=== PATIENT | female | born 1990 | race Caucasian/White ===

== ENCOUNTER 2024-05-18 14:14 | Outpatient (AMB) | payer BC, SELFPAY ==
--- NOTE | 2024-05-18 14:40 | MHC.PC.OV ---
Vital Signs 05/18/24 14:43 Height 5 ft 5.91 in Weight 289 lb BMI 46.8 BP 102/84 Blood Pressure Location Lt brachial Position Sitting Respiration 16 Pulse 92 Pulse Source Pulse Oximeter Temp 98.7 F Temp Source Oral Pulse Oximetry (%) 97 Oxygen Delivery Method Room Air Intake Visit Reasons: Est Care Intake Note: New patient visit Allergies dupilumab [From Dupixent Pen] Allergy (Mild, Verified 05/18/24 14:41) Hives Tobacco use date assessed: 05/18/24 Dental Screening Dental Screen Date: 05/18/24 Did you have a dental visit in the last 12 months?: Yes Did you have a dental problem in the last 6 months where you did not have access to dental care?: No Was dental information given to patient?: Patient has dentist HPI Est Care HPI Details Pt is a 34 y/o female who presents today for a cpe. She has a hx of psoraisis being managed by [facility] and allergies. No acute concerns today Allergy and immunology gets allergy injections. Recently started on Tremfya for psoriasis. She seems to be tolerating this well. On vitamin D daily. 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 1. Little interest or pleasure in doing things: not at all 2. Feeling down, depressed, or hopeless: not at all 3. Trouble falling or staying asleep, or sleeping too much: not at all 4. Feeling tired or having little energy: several days 5. Poor appetite or overeating: not at all 6. Feeling bad about yourself - or that you are a failure or have let yourself or your family down: not at all 7. Trouble concentrating on things, such as reading the newspaper or watching television: not at all 8. Moving or speaking so slowly that other people could have noticed. Or the opposite - being so fidgety or restless that you have been moving around a lot more than usual: not at all 9. Thoughts that you would be better off or of hurting yourself in some way: not at all Total score: 1 Depression Screening Interpretation: Negative Depression Screening Done: Yes [id number] - PHQ-9 Billing: Yes Source: Developed by Drs. Vern Mckeon, Renata Cooper, Ham Argueta and colleagues, with an educational abraham from [employer]. Thrive Questionnaire Date Thrive assessed: 04/21/24 I am a: Patient What is your living situation today?: I have a steady place to live Within the past 12 months, did the food you bought not last and you didn't have the money to get more?: Never true Within the past 12 months, did you worry whether your food would run out before you got money to buy more?: Never true Do you have trouble paying for medicines?: No Do you have trouble getting transportation to medical appointments?: No Do you have trouble paying your heating and electricity bill?: No Do you have trouble taking care of your child, family member or friend?: No Do you have trouble with day-to-day activities such as bathing, preparing meals, shopping, managing finances, etc.?: No Are you currently unemployed and looking for a job?: No Are you interested in more education?: No Please select the resources that you would like help with: None Currently or been in a relationship where the following occur: No concerns reported THRIVE Score: 0 AUDIT C Alcohol Use Questionnaire (AUDIT-C) 1. How often do you have a drink containing alcohol?: Never (past) 3. How often do you have six or more drinks on one occasion?: Never Total Score: 0 Score Reviewed/Action Taken: Yes NICHELLE-7 AMB Questionnaire NICHELLE-7 Feeling nervous, anxious, or on edge: 0 = Not at all Not being able to stop or control worryin = Not at all Worrying too much about different things: 0 = Not at all Trouble relaxin = Not at all Being so restless that it is hard to sit still: 0 = Not at all Becoming easily annoyed or irritable: 0 = Not at all Feeling afraid as if something awful might happen: 0 = Not at all Total NICHELLE-7 score (0-4 normal; 5-9 mild; 10-14 moderate; 15-21 severe): 0 Source: Developed by Drs. Vern Mckeon, Renata Cooper, Ham Argueta and colleagues, with an educational abraham from [employer]. NICHELLE-7 Assessment Billing NICHELLE-7 Assessment Tool: NICHELLE-7 Assessment 14381 Physical exam (Primary Care) Vital Signs: Last Vital Signs Temp 98.7 F 05/18/24 14:43 Pulse 92 05/18/24 14:43 Resp 16 05/18/24 14:43 BP 102/84 05/18/24 14:43 Pulse Ox 97 05/18/24 14:43 Oxygen Delivery Method Room Air 05/18/24 14:43 BMI result Body Mass Index 46.8 Tobacco/Smoking Status: Tobacco use Status Tobacco use date assessed 05/18/24 05/18/24 14:48 Patient Tobacco Use Status Never used Tobacco 05/18/24 14:48 e-Cigarette/Vaping Use Never Used 05/18/24 14:48 PHQ-9: PHQ-9 Score PHQ-9: Total score 1 05/18/24 14:48 Depression Screening Interpretation: Negative Thrive Assessment: Date of Thrive Assessment Date Thrive assessed 04/21/24 05/18/24 14:48 Currently or been in a relationship where the following occur: No concerns reported Const Orientation/consciousness: patient oriented x3 HENMT Ears: hearing grossly normal bilaterally and TM's normal bilaterally General nose exam: No nasal polyps present Face and sinus: Yes sinuses nontender Mouth: Normal oral and palatal mucosa present Eyes Pupils: Equal, round and reactive pupils present EOM: EOMs intact bilaterally Neck Neck: Yes full ROM and Yes no lymphadenopathy Thyroid: Thyroid normal Chest Chest palpation & inspection: normal inspection of the chest Resp Auscultation: clear to auscultation bilaterally Cardio Rate: regular rate Rhythm: regular rhythm Heart sounds: S1 normal heart sound present and S2 normal heart sound present Peripheral pulses: Peripheral pulses 2+ throughout GI Other: Soft, nontender Auscultation: normal bowel sounds Rectal Exam - Female: deferred General: Yes no CVA tenderness Back/Spine/Pelvis Other: Nontender Back: no CVA tenderness Skin General skin exam: no rashes or lesions noted Neuro General: patient oriented x3, gait normal, CN's II-XI intact bilaterally and deep tendon reflexes 2+ bilaterally Cranial nerves: Yes Equal, round and reactive pupils present Motor exam (neuro): 5/5 motor strength present throughout Sensory Exam: double simultaneous stimulation for sensation normal Coordination: [id number]-ci-[id number] test normal and Romberg test negative Extrem General: Yes normal to inspection and Yes full ROM Psych Affect: normal affect Attitude: cooperative Thought process: Normal thought process present Thought content: Normal thought content present Insight: Good insight present (Psych) Judgement: Good judgement present (Psych) Coding Level of Care Code Est Pt Prev Care 18-39y(90025) Diagnoses Routine general medical examination at a health care facility Z00.00 Psoriasis L40.9 Additional Codes PHQ-9 - 13953 - PHQ-9 Billing: Yes ([id number]) NICHELLE-7 Assessment Billing - NICHELLE-7 Assessment Tool: NICHELLE-7 Assessment 39945 ([id number]) Assessment & Plan Assessment & Plan (1) Routine general medical examination at a health care facility: Code(s): Z00.00 - Encounter for general adult medical examination without abnormal findings Plan: Health maintenance reviewed. Labs ordered today. We will follow up pending test results. (2) Psoriasis: Code(s): L40.9 - Psoriasis, unspecified Category: Medical Plan: Tolerating Tremfya well. She will follow up [facility]. Labs ordered including T spot. Orders: Orders Lipid Panel Today Z - Encounter for other specified special examinations TSH reflex Free T4 Today Z - Encounter for other specified special examinations Vitamin B12 and Folate Today Z. - Encounter for other specified special examinations Complete Blood Count Auto Diff Today Z01. - Encounter for other specified special examinations Comprehensive [place]. Panel Fast Today Z01. - Encounter for other specified special examinations T Spot TB Today Z. - Encounter for other specified special examinations, Z11.1 - Encounter for screening for respiratory tuberculosis
[2024-05-18 14:43] VITALS: BP 102/84; PULSE 92; RESP 16; TEMP 37.1; O2SAT 97; BMI 46.8
== END 2024-05-18 15:13 | disposition home or self-care (01) ==
LOC: HO.HMCFM 14:15
PROVIDERS: PCP Physician Assistant; Visit Provider Physician Assistant
DX: Z00.00 Encounter for general adult medical examination without abnormal findings (principal); L40.9 Psoriasis, unspecified

== ENCOUNTER → 2024-05-18 14:14 | Outpatient (BNVA) | payer BC, SELFPAY | PROVIDERS: Visit Provider Physician Assistant | DX: Z00.00 Encounter for general adult medical examination without abnormal findings (principal); L40.9 Psoriasis, unspecified | CPT/HCPCS: 96127 ==

== ENCOUNTER 2024-05-23 07:46 | Outpatient (REF) | payer BC, SELFPAY ==
[2024-05-23 11:06] LABS: MANUAL DIFF FLAG NO
[2024-05-23 11:15] LABS: Basophils Percent Auto 0.3 % (0-2); Eosinophils Absolute Auto 0.2 X10*3/uL (0.0-0.4); Eosinophils Percent Auto 2.8 % (0-4); Hematocrit 41.2 % (37.0-47.0); Hemoglobin 13.3 g/dl (12.0-16.0); Imm Gran Abs Auto 0.01 X10*3/uL (0.00-0.03); Imm Gran Pct Auto 0.1 % (0.0-0.4); Lymphocytes Absolute Auto 2.2 X10*3/uL (1.2-4.9); Lymphocytes Percent Auto 32.3 % (20-40); Mean Corpuscular HGB Conc 32.3 g/dl (31.0-35.0); Mean Corpuscular Hemoglobin 27.7 pg (27.0-33.0); Mean Corpuscular Volume 85.7 fL (80.0-98.0); Monocytes Absolute Auto 0.3 X10*3/uL (0.1-1.2); Neutrophils Percent Auto 59.5 % (45-73); Platelet Count 278 X10*3/uL (160-400); Red Blood Count 4.81 X10*6/uL (4.20-5.50); Red Cell Distribution Width 13.7 % (11.0-16.0); White Blood Count 6.8 X10*3/uL (4.8-10.8)
[2024-05-23 12:03] LABS: Folate 4.1 ng/mL (> or = 4.0); Vitamin B12 306 pg/mL (200-900)
[2024-05-23 12:04] LABS: Alanine Aminotransferase 14 U/L (0-31); Albumin Level 3.6 g/dL (3.5-5.0); Alkaline Phosphatase 55 U/L (39-117); Anion Gap 12 (12-20); Aspartate Amino Transferase 21 U/L (5-31); Bilirubin Total 0.3 mg/dL (0.0-1.0); Blood Urea Nitrogen 11 mg/dL (9-16); Calcium 8.9 mg/dL (8.4-10.2); Carbon Dioxide 23 mmol/L (22-29); Chloride 108 mmol/L (96-108); Cholesterol 187 mg/dL (<200); Estimated Glomerular Filt Rate > 60; Glucose Fasting 81 mg/dL (60-99); HDL Cholesterol 57 mg/dL (>40); LDL Cholesterol Calculated 100 mg/dL (<100); Potassium 3.9 mmol/L (3.3-5.1); Sodium 139 mmol/L (135-145); TSH reflex Free T4 2.05 uIU/mL (0.32-4.0); Total Protein 7.5 g/dL (6.5-8.0); Triglycerides 153 mg/dL (<150)
[2024-05-26 05:09] LABS: TS Negative Control Passed; TS Panel A 1; TS Panel B 0; TS Positive Control Passed; TSpotTB Negative (Negative)
== END 2024-05-23 07:47 | disposition home or self-care (01) ==
LOC: HO.WFDLDS 07:46
PROVIDERS: Visit Provider Physician Assistant
DX: Z01.89 Encounter for other specified special examinations (principal); Z11.1 Encounter for screening for respiratory tuberculosis
CPT/HCPCS: 36415; 80053; 80061; 82607; 82746; 84443; 85025; 86481

== ENCOUNTER 2024-07-14 09:59 | Outpatient (AMB) | payer BC, SELFPAY ==
--- NOTE | 2024-07-14 10:05 | MHC.PC.OV ---
Vital Signs 07/14/24 10:09 Height 5 ft 5.91 in Weight 281 lb 4 oz BMI 45.5 BP 110/76 Blood Pressure Location Rt brachial Position Sitting Pulse 94 Pulse Source Pulse Oximeter Temp 98.6 F Temp Source Oral Pulse Oximetry (%) 99 Oxygen Delivery Method Room Air Intake Visit Reasons: Couch and congestion Intake Note: Cough, congestion, headache, hot and cold, chills. Sxs for a week and a half. Allergies dupilumab [From HuntForce Pen] Allergy (Mild, Verified 05/18/24 14:41) Hives Medication List - Last Reconciled 07/14/24 by Lilibeth Cabrera PA-C cetirizine (Zyrtec) 10 mg PO DAILY PRN guselkumab (Tremfya) 100 mg subcut Q8W norgestimate-ethinyl estradiol 0.25-35 mg-mcg (Estarylla) 1 tab PO DAILY Tobacco use date assessed: 05/18/24 Dental Screening Dental Screen Date: 05/18/24 HPI Couch and congestion HPI Details History of Present Illness The patient is a 34-year-old female presenting with symptoms indicative of acute sinusitis and an upper respiratory tract infection. The onset of symptoms was approximately one and a half weeks ago, characterized initially by nasal congestion followed by a sensation of postnasal drip leading to throat irritation. The patient reports a progression of the discomfort, with the sensation of congestion extending to the chest. Associated symptoms include persistent coughing, often induced by speaking or physical exertion, such as ascending stairs, which results in significant fatigue. The patient denies having a history of asthma but does indicate experiencing wheezing during these episodes. There has been no recorded fever, though the patient reports episodes of feeling hot and experiencing chills. The patient has been treating her symptoms with Tylenol, decongestants, allergy medications, and cough suppressants without significant relief. She mentions a history of pneumonia but reports no recent hospitalizations for respiratory symptoms. Health Maintenance Social History Review of Systems - Constitutional: Denies fever. - Respiratory: Reports wheezing associated with exertion and cough. - ENT: Reports congestion, postnasal drip, and sore throat. Pain in the maxillary sinus region. Physical Exam General: Well developed, well nourished, in no acute distress. Appears stated age. HEENT: TMs dome-shaped a small air-fluid levels bilaterally, mild posterior oropharynx erythema. Maxillary sinus tenderness present. Nasal mucosa erythematous and edematous with purulent drainage. Cardiac: RRR, no murmurs Lungs: Inspiratory expiratory wheezing noted. 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 1. Little interest or pleasure in doing things: several days 2. Feeling down, depressed, or hopeless: not at all 3. Trouble falling or staying asleep, or sleeping too much: several days 4. Feeling tired or having little energy: several days 5. Poor appetite or overeating: several days 6. Feeling bad about yourself - or that you are a failure or have let yourself or your family down: not at all 7. Trouble concentrating on things, such as reading the newspaper or watching television: not at all 8. Moving or speaking so slowly that other people could have noticed. Or the opposite - being so fidgety or restless that you have been moving around a lot more than usual: not at all 9. Thoughts that you would be better off or of hurting yourself in some way: not at all Total score: 4 Source: Developed by Drs. Vern Mckeon, Renata Cooper, Ham Argueta and colleagues, with an educational abraham from [employer]. Thrive Questionnaire Date Thrive assessed: 07/14/24 I am a: Patient What is your living situation today?: I have a steady place to live Within the past 12 months, did the food you bought not last and you didn't have the money to get more?: Never true Within the past 12 months, did you worry whether your food would run out before you got money to buy more?: Never true Do you have trouble paying for medicines?: No Do you have trouble getting transportation to medical appointments?: No Do you have trouble paying your heating and electricity bill?: No Do you have trouble taking care of your child, family member or friend?: No Do you have trouble with day-to-day activities such as bathing, preparing meals, shopping, managing finances, etc.?: No Are you currently unemployed and looking for a job?: No Are you interested in more education?: No Please select the resources that you would like help with: None Currently or been in a relationship where the following occur: No concerns reported THRIVE Score: 0 AUDIT C Alcohol Use Questionnaire (AUDIT-C) 1. How often do you have a drink containing alcohol?: Never Total Score: 0 NICHELLE-7 AMB Questionnaire NICHELLE-7 Feeling nervous, anxious, or on edge: 0 = Not at all Not being able to stop or control worryin = Not at all Worrying too much about different things: 0 = Not at all Trouble relaxin = Not at all Being so restless that it is hard to sit still: 0 = Not at all Becoming easily annoyed or irritable: 0 = Not at all Feeling afraid as if something awful might happen: 0 = Not at all Total NICHELLE-7 score (0-4 normal; 5-9 mild; 10-14 moderate; 15-21 severe): 0 Source: Developed by Drs. Vern Mckeon, Renata Cooper, Ham Argueta and colleagues, with an educational abraham from [employer]. Physical exam (Primary Care) Vital Signs: Last Vital Signs Temp 98.6 F 07/14/24 10:09 Pulse 94 07/14/24 10:09 BP 110/76 07/14/24 10:09 Pulse Ox 99 07/14/24 10:09 Oxygen Delivery Method Room Air 07/14/24 10:09 BMI result Body Mass Index 45.5 Tobacco/Smoking Status: Tobacco use Status Tobacco use date assessed 05/18/24 07/14/24 10:11 Patient Tobacco Use Status Never used Tobacco 07/14/24 10:11 e-Cigarette/Vaping Use Never Used 07/14/24 10:11 PHQ-9: PHQ-9 Score PHQ-9: Total score 4 07/14/24 10:11 Thrive Assessment: Date of Thrive Assessment Date Thrive assessed 07/14/24 07/14/24 10:11 Currently or been in a relationship where the following occur: No concerns reported Coding Level of Care Code Est Pt Level 3 (50969) Complex EM visit Add On G2211 Diagnoses Bacterial sinusitis J32.9; B96.89 Wheezing R06.2 Assessment & Plan Assessment & Plan (1) Bacterial sinusitis: Code(s): J32.9 - Chronic sinusitis, unspecified; B96.89 - Other specified bacterial agents as the cause of diseases classified elsewhere Plan: We will start Augmentin. Discussed risks and benefits and adverse effects of this medication. Start prednisone taper for the wheezing. Albuterol to use as needed. Follow up if no improvement or if anything worsens or changes. (2) Wheezing: Code(s): R06.2 - Wheezing Plan: As above Medications: New prednisone take 3 tab po x 3 days, take 2 tab po x 3 days, 1 tab po x 3 days 18 tabs 0RF albuterol sulfate 90 mcg/actuation 2 puffs inhalation Q4-6H PRN 8.5 grams 0RF shortness of breath or wheezing amoxicillin-pot clavulanate 875-125 mg 1 tab PO Q12H 20 tabs 0RF
[2024-07-14 10:09] VITALS: BP 110/76; PULSE 94; TEMP 37; O2SAT 99; BMI 45.5
== END 2024-07-14 14:08 | disposition home or self-care (01) ==
PROVIDERS: PCP Physician Assistant; Visit Provider Physician Assistant
DX: J32.9 Chronic sinusitis, unspecified (principal); B96.89 Other specified bacterial agents as the cause of diseases classified elsewhere; R06.2 Wheezing

== ENCOUNTER → 2024-07-14 09:59 | Outpatient (BNVA) | payer BC, SELFPAY | PROVIDERS: PCP Physician Assistant; Visit Provider Physician Assistant ==

== ENCOUNTER 2024-07-22 13:20 | Outpatient (REF) | payer BC, SELFPAY ==
[2024-07-22 18:33] LABS: Influenza A PCR NEGATIVE (Negative); Influenza B PCR NEGATIVE (Negative); Resp Syncy Virus RNA Qual PCR NEGATIVE (Negative); SARS COV2 PCR INHOUSE POSITIVE (Negative)
== END 2024-07-22 13:21 | disposition home or self-care (01) ==
LOC: HO.LNP 13:20
PROVIDERS: PCP Nurse Practitioner Family; Visit Provider Nurse Practitioner Family
DX: R05.1 Acute cough (principal); J01.01 Acute recurrent maxillary sinusitis
CPT/HCPCS: 0241U; 94640

== ENCOUNTER 2024-07-22 13:20 | Outpatient (AMB) | payer BC, SELFPAY ==
--- NOTE | 2024-07-22 13:26 | A.OFFPC_ITS ---
Vital Signs 07/22/24 13:39 07/22/24 13:53 Height 5 ft 5.91 in Weight 281 lb BMI 45.5 BP 148/78 H Blood Pressure Location Lt brachial Position Sitting Respiration 13 14 Pulse 111 H 99 Pulse Source Pulse Oximeter Pulse Oximeter Temp 98.1 F Temp Source Oral Pulse Oximetry (%) 98 99 Oxygen Delivery Method Room Air Room Air Intake Visit Reasons: Sinus Infection, not improved w/antibiotic, KH pt Allergies dupilumab [From Samtec Pen] Allergy (Mild, Verified 07/22/24 13:26) Hives Medication List - Last Reconciled 07/22/24 by Chantelle Morales, CARDIAC CARE UNIT NURSE- albuterol sulfate 90 mcg/actuation 2 puffs inhalation Q4-6H PRN amoxicillin-pot clavulanate 875-125 mg 1 tab PO Q12H cetirizine (Zyrtec) 10 mg PO DAILY PRN guselkumab (Tremfya) 100 mg subcut Q8W norgestimate-ethinyl estradiol 0.25-35 mg-mcg (Estarylla) 1 tab PO DAILY Tobacco use date assessed: 05/18/24 Dental Screening Dental Screen Date: 05/18/24 HPI HPI Comments History of Present Illness Details History of Present Illness The patient is a 34-year-old female presenting with continued sinus infection and associated respiratory symptoms. The patient reports a longstanding history of chronic sinusitis, which she has experienced recurrently since childhood. Current symptoms began on end jun and were initially managed with a regimen i ncluding prednisone, amoxicillin, and use of an inhaler. Despite completing prednisone and continuing amoxicillin, the patient reports persistent sinus pain, particularly localized to the right side of the face and head. A notable symptom accompanying these infections is difficulty breathing during conversation due to a cough that is exacerbated by speaking and accompanied by gasping for air. The patient denies smoking and confirms recent COVID testing was negative. Additionally, she noted use of Nasacort nasal spray and received both her flu and tetanus vaccinations. Previously, the patient was advised to postpone a Tremfya shot for her psoriasis due to symptoms. Current respiratory symptoms include a persistent cough characterized by drip sensation and tightness, unrelieved by current treatments. A nebulizer treatment as a child was tolerated well. No fever-reducing medications were taken today, with her current temperature at 98?F, and O2 saturation noted at 98%. Exam Awake alert NAD Sclera and conjunctiva clear bilat Nares patent, turbinates pale and edematous, right maxillary sinus tender to palpation TM intact and clear on left, mild bulge on right with mild erythema MMM, pharynx WNL Mildly tachycardic, regular rhythm LS dim throughout, hacking cough noted without distress. Status post DuoNeb updraft, improved air flow throughout lung de leon with a decreased cough. P atient reports her breathing does feel better. Plan - Conduct a nebulizer treatment containi ng bronchodilator and anticholinergic agents to assess and relieve respiratory symptoms. - Perform comprehensive swab testing for influenza, COVID-19, and RSV, sending specimens to the lab for analysis. She is aware that the results will be posted to the portal. If it is positive for flu she should be prescribed Tamiflu. If his positive for RSV this is symptomatic relief only. If she is positive for COVID, Paxlovid could be considered. - Continue amoxicillin as prescribed for acute bacterial sinusitis. Add azithromycin to her regimen - given that she had profound improvemen t with the DuoNeb updraft, we will add Combivent 1 puff q.i.d. PRN. Advised to use until her breathing is better. Educated on reasons to return to the office Patient was informed and verbally consented to the use of an ambient scribe for clinic note documentation during this visit. This note is constructed using voice recognition software. While every effort has been made to ensure accuracy in surface lay out technician, still errors may have been included Sometimes, these errors may affect the content or meaning of the given sentence . Total time spent caring for the patient today was 45 minutes. 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 10213 - PHQ-9 Billing: Patient declined-do not bill Source: Developed by Drs. Vern Mckeon, Renata Cooper, Ham Argueta and colleagues, with an educational abraham from [employer]. Thrive Questionnaire Date Thrive assessed: 07/22/24 I am a: Patient What is your living situation today?: I have a steady place to live Within the past 12 months, did the food you bought not last and you didn't have the money to get more?: Never true Within the past 12 months, did you worry whether your food would run out before you got money to buy more?: Never true Do you have trouble paying for medicines?: No Do you have trouble getting transportation to medical appointments?: No Do you have trouble paying your heating and electricity bill?: No Do you have trouble taking care of your child, family member or friend?: No Do you have trouble with day-to-day activities such as bathing, preparing meals, shopping, managing finances, etc.?: No Are you currently unemployed and looking for a job?: No Are you interested in more education?: No Please select the resources that you would like help with: None Currently or been in a relationship where the following occur: No concerns reported THRIVE Score: 0 Physical exam (Primary Care) Vital Signs: Last Vital Signs Temp 98.1 F 07/22/24 13:39 Pulse 99 07/22/24 13:53 Resp 14 07/22/24 13:53 BP 148/78 H 07/22/24 13:53 Pulse Ox 99 07/22/24 13:53 Oxygen Delivery Method Room Air 07/22/24 13:53 BMI result Body Mass Index 45.5 Tobacco/Smoking Status: Tobacco use Status Tobacco use date assessed 05/18/24 07/22/24 13:26 Patient Tobacco Use Status Never used Tobacco 07/22/24 13:26 e-Cigarette/Vaping Use Never Used 07/22/24 13:26 Thrive Assessment: Date of Thrive Assessment Date Thrive assessed 07/22/24 07/22/24 13:40 Currently or been in a relationship where the following occur: No concerns reported Office Procedures Nebulizer Treatment Nebulizer Treatment 37874-Jwgycbjif/MDI RX initial, or Nebulizer Subsequent Treatment Nebulizer Treatment Nebulizer Treatment 09440-Shtvjgsgy/MDI RX initial, or Nebulizer Subsequent Treatment Office Meds ipratropium 0.5 mg-albuterol 3 mg (2.5 mg base)/3 mL nebulization soln Performing Provider: DORIS Rice Performing Location: [facility] Administered by: DORIS Rice on 07/22/24 13:35 Dose Route Admin Location Dispensed Lot Number Expiration Date NDC Cutter Machine 3 mL inhalation office 3 mL 24ehs 12/10/25 [id number] [employer] Coding Level of Care Code Est Pt Level 5 (77319) Complex EM visit Add On G2211 Diagnoses Acute cough R05.1 Cough type: acute Acute recurrent maxillary sinusitis J01.01 Sinusitis location: maxillary Chronicity: acute Recurrence: recurrent CPT Codes Nebulizer Treatment - Nebulizer Treatment, initial or subsequent: 41916- Nebulizer/MDI RX initial, or Nebulizer Subsequent Treatment ([id number]) Nebulizer Treatment - Nebulizer Treatment, initial or subsequent: 76341- Nebulizer/MDI RX initial, or Nebulizer Subsequent Treatment ([id number]) Assessment & Plan Assessment & Plan (1) Cough: Code(s): R05.9 - Cough, unspecified Category: Medical Qualifiers: Cough type: acute Qualified Code(s): R05.1 - Acute cough (2) Sinusitis: Code(s): J32.9 - Chronic sinusitis, unspecified Category: Medical Qualifiers: Sinusitis location: maxillary Chronicity: acute Recurrence: recurrent Qualified Code(s): J01.01 - Acute recurrent maxillary sinusitis Plan . Orders: Orders SARS-CoV2/FLU/RSV Today R09.89 - Other specified symptoms and signs involving the circulatory and respiratory systems AMB Nebulizer Treatment Today R05.9 - Cough, unspecified Medications: New azithromycin For 250 mg dose pack: take 500 mg today (day 1), then 250 mg for 4 days (days 2-5) PO 5 days 6 tabs 0RF ipratropium-albuterol 20-100 mcg/actuation (Combivent Respimat) space evenly during waking hours 1 puff inhalation QID 4 grams 0RF ipratropium-albuterol 0.5 mg-3 mg(2.5 mg base)/3 mL 3 mL inhalation ONCE 3 mL 0RF cough R05.9 - Cough, unspecified
[2024-07-22 13:39] VITALS: PULSE 111; RESP 13; TEMP 36.7; O2SAT 98; BMI 45.5
[2024-07-22 13:53] VITALS: BP 148/78; PULSE 99; RESP 14; O2SAT 99
== END 2024-07-22 16:45 | disposition home or self-care (01) ==
PROVIDERS: PCP Nurse Practitioner Family; Visit Provider Nurse Practitioner Family
DX: R05.1 Acute cough (principal); J01.01 Acute recurrent maxillary sinusitis; R05.9 Cough, unspecified

== ENCOUNTER 2024-09-22 07:33 | Outpatient (REF) | payer BC, SELFPAY ==
--- OUTSIDE RECORDS SUMMARY | 2024-09-22 07:38 | XMS_ITS | Encounter Summary ---
Author Organization [facility] Address [address] [place] [address] Care Team Providers Care Timber Treating Tank Operator Name Role Phone Physician, Pcp Unknown Primary Care Provider Susi vailable Reason for Referral * Imaging (Routine) - Pending Review Specialty Diagnoses / Procedures Referred By Contac t Referred To Contact Radiology Diagnoses Abnormal uterine bleeding (AUB) Procedures US Pelvis Non OB Complete w Transvaginal Wm Macdonald CNM [address] [place], [place] Phone: tel: fax: [address] Phone: tel: Referral ID Status Reason Start Date Expiration Date V isits Requested Visits Authorized [id number] Pending Review 09/15/2024 09/15/2025 1 1 Reason for Visit * Imaging (Routine) - Pending Review Specialty Diagnoses / Procedures Referred By Contac t Referred To Contact Radiology Diagnoses Abnormal uterine bleeding (AUB) Procedures US Pelvis Non OB Complete w Transvaginal Wm Macdonald CNM [address] [place], [place] Phone: tel: fax: [address] Phone: tel: Referral ID Status Reason Start Date Expiration Date V isits Requested Visits Authorized [id number] Pending Review 09/15/2024 09/15/2025 1 1 Encounter Details Date Type Department Care Team (Latest Contact Info) Description 09/19/2024 4:25 PM EDT - 09/19/2024 11:59 PM EDT Hospital Encounter Radiology Department - [address] [phone] Abnormal uterine bleeding (AUB) Discharge Disposition: Home or Self Care Social History Tobacco Use Types Packs/Day Years Used Date Smoking Tobacco: Never Smokeless Tobacco: Never Alcohol Use Standard Drinks/Week Comments Not Currently 0 (1 standard drink = 0.6 oz pur e alcohol) Housing Instability Answer Date Recorde d Are you worried that in the next 2 months you may not have stable housing? No 09/08/2024 Food Access & Nutrition Answer Date Rec orded Do you have access to a vari ety of food including fruits and vegetables? Yes 09/08/2024 Access to Healthcare Answer Date Record ed Within the last 3 months, jun evangelista many times did you visit the emergency department for your medical care? 0 09/08/2024 Health Literacy Answer Date Recorded How often do you need to hav e someone help you when you read instructions, pamphlets, or other written material from your doctor or pharmacy? Never 09/08/2024 Caregiver: How often do you need to have someone help you when you read instructions, pamphlets, or other written material from your doctor or pharmacy? Not on file 09/08/2024 Financial Risk Answer Date Recorded How hard is it for you to pa y for the very basics like food, housing, medical care, and air conditioning / heating? Not very hard 09/08/2024 Transportation Answer Date Recorded Has the lack of transportati on kept you from meetings, work, or from getting things needed for daily living? No Has the lack of transportati on kept you from medical appointments or from getting medications? No 09/08/2024 Social Isolation Answer Date Recorded How often do you feel lonely or isolated from th ose around you? Never 09/08/2024 Food Risk Answer Date Recorded Within the past 12 months we worried whether our food would run out before we got money to buy more. Never true 09/08/2024 Within the past 12 months th e food we bought just didn't last and we didn't have money to get more. Never true 09/08/2024 Dependent Care Answer Date Recorded Do you need help finding or paying for care for your loved ones. For example, director of early childhood or elderly care for an older adult? No 09/08/2024 Education Answer Date Recorded Do you think completing more education or training, like finishing a GED, going to college, or learning a trade, would be helpful for you? No 09/08/2024 Employment and Income Answer Date Recor ded During the last four weeks, have you been actively looking for work? No 09/08/2024 Living Situation Answer Date Recorded What is your living situation? 0 09/08/2024 Comments Unknown Sex and Gender Information Value Date Recorded Sex Assigned at Not on file Legal Sex Female 11:50 PM EST Gender Identity Not on file Sexual Orientation Not on file documented as of this encounter Medications at Time of Discharge cetirizine HCl (ZYRTEC ORAL) Take by mouth. norgestimate-ethi nyl estradioL (ORTHO-CYCLEN) 0.25-35 mg-mcg per tablet Take 1 tablet by mouth 1 (one) time each day. 28 tablet 4 08/29/2024 triamcinolone acetonide (NASACORT AQ NASL) by Nasal route. documented as of this encounter Discharge Disposition Disposition Code Departure Means Destination Home or Self Care documented in this encounter Plan of Treatment Not on file documented as of this encounter Procedures Procedure Name Priority Date/Time Associated Diagnosis Comments US PELVIS NON OB COMPLETE W TRANSVAGINAL Routine 09/19/2024 6:16 PM EDT Abnormal uterine bleeding (AUB) documented in this encounter Results * US Pelvis Non OB Complete w Transvaginal (09/19/2024 6:16 PM EDT) Anatomical Region Laterality Modality Body, Pelvis Ultrasound 09/20/2024 9:36 AM EDT Narrative 09/20/2024 9:38 AM EDT Pelvic ultrasound. History abnormal uterine bleeding. Examination was performed transabdominally and transvaginally. Color Doppler ultrasound was also implemented Uterus measures 8.4 x 3.2 x 4.3 cm. There is small submucosal fibroid on the anterior wall measuring 1.1 x 1.1 x 1 cm. There is small amount of fluid within the cervical canal. Endometrium measures 7 mm. Both ovaries were visualized was normal size and echogenicity. Right ovarian volume is 2.5 cc. Left ovarian volume is 6.5 cc. CONCLUSIONS: Submucosal anterior wall uterine fibroid. -------- FINAL REPORT -------- Dictated By: Jelly Nicholson Dictated Date: 09/20/2024 09:36 ET Assigned Physician: Jelly Nicholson Reviewed and Electronically Signed By: Jelly Nicholson Signed Date: 09/20/2024 09:38 ET Workstation ID: [id number] Transcribed By: Self Edit Transcribed Date: 09/20/2024 09:36 ET Procedure Note Jelly Nicholson MD - 09/20/2024 Pelvic ultrasound. History abnormal uterine bleeding. Examination was performed transabdominally and transvaginally. ColorDoppler ultrasound was also implemented Uterus measures 8.4 x 3.2 x 4.3 cm. There is small submucosal fibroid onthe anterior wall measuring 1.1 x 1.1 x 1 cm. There is small amount offluid within the cervical canal. Endometrium measures 7 mm. Both ovarieswere visualized was normal size and echogenicity. Right ovarian volume is2.5 cc. Left ovarian volume is 6.5 cc. CONCLUSIONS: Submucosal anterior wall uterine fibroid. -------- FINAL REPORT -------- Dictated By: Jelly Nicholson Dictated Date: 09/20/2024 09:36 ET Assigned Physician: Jelly Nicholson Reviewed and Electronically Signed By: Jelly Nicholson Signed Date: 09/20/2024 09:38 ET Workstation ID: [id number] Transcribed By: Self Edit Transcribed Date: 09/20/2024 09:36 ET Wm CURRAN IMG US PROCEDURES Final Result documented in this encounter Visit Diagnoses Diagnosis Abnormal uterine bleeding (AUB) documented in this encounter Additional Health Concerns Assessment Noted Time PHQ-9 Depression Total Score: 0 09/08/19 25 12:18 PM EST documented as of this encounter Care Teams Timber Treating Tank Operator Relationship Specialty Start Date End Date Physician, Pcp Unknown PCP - General 09/15/24 documented as of this encounter
--- OUTSIDE RECORDS SUMMARY | 2024-09-22 07:38 | XMS_ITS | Encounter Summary ---
Author Organization [facility] [place] [address] Care Team Providers Care Chief Wharfinger Name Role Phone Physician, Pcp Unknown Primary Care Provider Susi vailable Encounter Details Date Type Department Care Team ([facility] Contact Info) Description 09/21/2024 Telephone Obstetrics and Gynecology - [place] [address] [place] [address] Anastasia Stephens MA Social History Tobacco Use Types Packs/Day Years [...] care for your loved ones. For example, early childhood associate or elderly care for an older adult? [...] on file documented as of this encounter Progress Notes * Anastasia Stephens MA - 09/21/2024 1:27 PM EDT Pap letter sent to patient. * Anastasia Stephens MA - 09/21/2024 1:26 PM EDT ----- Message from Rolan Macdonald CNM sent at 09/21/2024 1:18 AM EDT ----- I have reviewed your Pap smear and it is negative for squamous intraepithelial lesions and malignancy and negative HPV, based on the ASCCP guidelines repeat pap smear in 5 years, with yearly breast and pelvic exams. Wm Macdonald CNM documented in this encounter Plan of Treatment Not on file documented as of this encounter Visit Diagnoses Not on filedocumented in this encounter Additional Health Concerns Assessment Noted Time PHQ-9 Depression Total Score: 0 09/08/19 12:18 PM EST documented as of this encounter Care Teams Chief Wharfinger Relationship Specialty Start Date End Date Physician, Pcp Unknown PCP - General 09/15/24 documented as of this encounter
--- OUTSIDE RECORDS SUMMARY | 2024-09-22 07:38 | XMS_ITS | Clinical Summary ---
Author Organization [facility] [address] [facility] l[address] Address [address] [place] [address] Phone Care Team Providers Care Chair Inspector And Leveler Name Role Phone Physician, Pcp Unknown Primary Care Provider Susi vailable Allergies Active Allergy Reactions Criticality Noted Date Comments Mold Runny nose 06/03/2021 Medications cetirizine HCl (ZYRTEC ORAL) Take by mouth. Active triamcinolone acetonide (NASACORT AQ NASL) by Nasal route. Active norgestimate-e thinyl estradioL (ORTHO-CYCLEN) 0.25-35 mg-mcg per tablet Take 1 tablet by mouth 1 (one) time each day. 28 tablet 4 08/29/19 25 Active upadacitinib (Rinvoq) 15 mg tablet extended release 24 hr Take by mouth. 025 Discontinued norgestimate-e thinyl estradioL (ORTHO-CYCLEN) 0.25-35 mg-mcg per tablet Take 1 Tablet by mouth daily. 08/20/19 24 025 Discontinued(Re order) ergocalciferol (VITAMIN D-2) 1,250 mcg (50,000 unit) capsule TAKE 1 CAPSULE BY MOUTH 1 TIME A WEEK FOR 8 DOSES 09/26/19 23 025 Discontinued UNABLE TO FIND ALLERGY INJECTIONS Once monthly 025 Discontinued Active Problems Problem Noted Date Diagnosed Date Fibroids 09/21/2024 Overview (09/21/2024): There is small submucosal fibroid on the anterior wall measuring 1.1 x 1.1 x 1 cm. Raynaud's disease without gangrene 08/05/2022 Dry skin 08/05/2022 Fatigue 08/05/2022 Weight gain 08/05/2022 Encounters Date Type Department Care Team Description 09/21/2024 Telephone Obstetrics and Gynecology - [address] [phone] Anastasia Stephens MA 09/19/2024 4:25 PM EDT - 09/19/2024 11:59 PM EDT Hospital Encounter Radiology Department - [address] [phone] Abnormal uterine bleeding (AUB) Discharge Disposition: Home or Self Care 09/15/2024 4:00 PM EST Office Visit Obstetrics and Gynecology - [address] [phone] Wm Macdonald CNM Encounter for annual routine gynecological examination (Primary Dx); Abnormal uterine bleeding (AUB); Surveillance for control, oral contraceptives from Last 3 Months Immunizations Name Administration Dates Next Due HPV, Quadrivalent 02/08/2008,08/05/2007,09/27/19 05 Hepatitis B Pediatric (Enger ix B; Recombivax HB) to less than 20 yo 10/18/2001 Influenza trivalent, with pr eservative (Fluzone; Afluria) 6mo and older 04/24/2016 Influenza, Unspecified 05/12/2021 Meningococcal MCV4P 10/12/2007 Moderna (age 6mo & older) Bi valent, COVID-19, 0.5 mL or 0.25 mL dosage 05/16/2022 Moderna SARS-CoV-2 COVID-19, mRNA, LNP-S, preservative free 06/14/2021 Tdap Tetanus diptheria acell ular pertussis (Boostrix; Adacel) 7yo and older 01/09/2021,10/22/2007 Varicella live (Varivax) 12mo and older 10/22/19 08,02/18/2000 Surgical History Surgery Date Site/Laterality Comments OTHER SURGICAL HISTORY PROCEDURE: DENIES PREVIOUS SURGERY Medical History Medical History Date Comments Obesity DX:Obesity Family History Medical History Relation Name Comments Asthma Brother Hypertension Father Rfanck Colon cancer Maternal Grandfather Breast cancer Maternal Grandmother Genevieve Alzheimer's disease Paternal Grandmother Ovarian cancer Neg Hx Pancreatic cancer Neg Hx Prostate cancer Neg Hx Uterine cancer Neg Hx Relation Name Status Comments Brother Alive Father Franck Alive Maternal Grandfather Maternal Grandmother Genevieve Alive Mother Alive Paternal Grandfather Paternal Grandmother Social History Tobacco Use Types Packs/Day Years Used Date Smoking Tobacco: Never Smokeless Tobacco: Never Tobacco Cessation:Counseling Given: Not Answered Alcohol Use Standard Drinks/Week Comments Not Currently [...] Record ed Within the last 3 months, ho w many times did you visit the emergency [...] care for your loved ones. For example, child watch attendant or elderly care for an older adult? [...] on file Sexual Orientation Not on file Obstetrics History Para Term AB IAB SAB Ectopic Multiple Livin g Live Births 0 0 0 0 0 0 0 0 0 0 0 Last Filed Vital Signs Vital Sign Reading Time Taken Comments Blood Pressure 128/78 09/15/2024 2:35 PM EST Pulse 92 09/15/2024 2:35 PM EST Temperature - - Respiratory Rate 16 09/15/2024 2:35 PM EST Oxygen Saturation - - Inhaled Oxygen Concentration - - Weight 130 kg (287 lb) 09/15/2024 2:35 PM EST Height 159 cm (5' 2.6 ) 09/15/2024 2:35 PM EST Body Mass Index 51.49 09/15/2024 2:35 PM EST Plan of Treatment Health Maintenance Due Date Last Done Comments Hepatitis B Vaccines (2 of 3 - 3-dose series) 11/15/2001 10/18/2001 HIV Screening 06/15/2022 Hepatitis C Screening 06/15/2022 Depression Screening 09/08/2025 09/08/2024 Social Influencers of Health Screening 09/08/2025 09/08/2024 Cholesterol Screening (Lipid Panel) 06/03/2026 06/03/2021 Cervical Cancer Screening: HPV 09/16/2027 09/15/2024, 06/19/2020 Cervical Cancer Screening: Pap Smear 09/16/2027 09/15/2024, 09/15/2024, 06/19/2020, Additional history exists DTaP,Tdap,and Td Vaccines (3 - Td or Tdap) 01/09/2031 01/09/2021, 10/22/2007 Meningococcal ACWY Vaccine Completed 10/12/2007 Varicella Vaccines Completed 10/22/2007, 02/18/2000 HPV Vaccines Completed 02/08/2008, 09/10, 08/05/2007, Additional history exists COVID-19 Vaccine Completed 04/21/2024, , 05/16/2022, Additional history exists Influenza Vaccine Completed 04/21/2024, , 04/27/2022, Additional history exists HIB Vaccines Aged Out No longer eligi ble based on patient's age to complete this topic Hepatitis A Vaccines Aged Out No long er eligible based on patient's age to complete this topic IPV Vaccines Aged Out No longer eligi ble based on patient's age to complete this topic MMR Vaccines Aged Out No longer eligi ble based on patient's age to complete this topic Meningococcal B Vacine Aged Out No lo nger eligible based on patient's age to complete this topic Pneumococcal Vaccine: Pediatrics (0 to 5 Years) and At-Risk Patients (6 to 64 Years) Aged Out No longer eligible based on patient's age to complete this topic RSV Immunization Patients Under 20 months Aged Out No longer eligible based on patient's age to complete this topic Procedures Procedure Name Priority Date/Time Associated Diagnosis Comments US PELVIS NON OB COMPLETE W TRANSVAGINAL Routine 09/19/2024 6:16 PM EDT Abnormal uterine bleeding (AUB) PAP SMEAR Routine 09/15/2024 3:23 PM EST Encounter for annual routine gynecological examination HPV WITH REFLEX GENOTYPE Routine 09/15/2024 3:23 PM EST Encounter for annual routine gynecological examination CBC WITH AUTO DIFFERENTIAL Routine 09/15/2024 3:22 PM EST Abnormal uterine bleeding (AUB) PROLACTIN Routine 09/15/2024 3:22 PM EST Abnormal uterine bleeding (AUB) THYROID STIMULATING HORMONE WITH REFLEX TO FREE T4 AND FREE T3 Routine 09/15/2024 3:22 PM EST Abnormal uterine bleeding (AUB) CBC AND DIFFERENTIAL Routine 09/15/2024 3:22 PM EST Abnormal uterine bleeding (AUB) LIPID PANEL Routine 06/03/2021 from Last 3 Months or Most Recently Relevant to Health Maintenance Results * US Pelvis Non OB Complete [...] Signed Date: 09/20/2024 09:38 ET Workstation ID: [id number] Transcribed By: Self Edit Transcribed Date: 09/20/2024 [...] Signed Date: 09/20/2024 09:38 ET Workstation ID: [id number] Transcribed By: Self Edit Transcribed Date: 09/20/2024 09:36 ET Wm Macdonald CNM IMG US PROCEDURES Final Result * HPV with reflex genotype (09/15/2024 3:23 PM EST) HPV Negative Negative LAB MICROBIOLOGY METHOD 09/16/2024 3:01 PM EST [facility] Brushing/Spatula Cervix uteri structure / Unknown 09/15/2024 3:23 PM EST 09/16/2024 8:24 AM EST Wm Macdonald CNM LAB MOLECULAR DIAGNOSTICS MARY LOU VITAL Final Result [facility] [address] [place] [address], [place] [phone] * Pap smear (09/15/2024 3:23 PM EST) Interpretation Negative for intraepithelial lesion or malignancy 09/19/2024 2:17 PM EDT [facility] General Categorization Negative 09/19/2024 2:17 PM EDT [facility] Specimen Adequacy Satisfactory for evaluation, endocervical/batuista sformation zone component present 09/19/2024 2:17 PM EDT [facility] Pap Methodology Liquid Based Pap Test 09/19/2024 2:17 PM EDT [facility] Disclaimer The Pap test is a screening test which carries an inherent false negative rate. These test results should be correlated with the patient's clinical findings and history. This Pap test was processed using an automated screening system. Technical cytopathology services provided by [facility], at [address] [place] [address] (CLIA # [id number]/Anand Meneses MD, Card Grinder Helper.) 09/19/2024 2:17 PM EDT [facility] Console Pap Interpretation Reported 09/19/2024 2:17 PM EDT [facility] Brushing/Spatula Cervix uteri structure / Unknown 09/15/2024 3:23 PM EST 09/15/2024 3:24 PM EST Wm Macdonald [facility] CYTOLOGY ORDERABLES Final Result Performing Organization Address City/[facility]/ZIP Co de Phone Number [facility] [address] [place] [address], [place] [phone] * Thyroid stimulating hormone with reflex to free t4 and free t3 (09/15/2024 3:22 PM EST) Pathologist [facility] [place] TSH 3.19 0.40 - 4.00 mcIU/mL LAB CHEMISTRY METHOD 09/15/2024 6:10 PM EST [facility] Blood Venous blood specimen / Unknown Venipuncture / Unknown 09/15/2024 3:22 PM EST 09/15/2024 3:22 PM EST Wm CURRAN LAB BLOOD ORDERABLES Final Res ult [facility] [address] [place] [address], [place] [phone] * (ABNORMAL) CBC auto differential (09/15/2024 3:22 PM EST) WBC 8.6 4.8 - 10.8 K/mcL LAB HEMETOLOGY METHOD 09/15/2024 6:02 PM [facility] RBC 4.70 3.80 - 4.80 M/mcL LAB HEMETOLOGY METHOD 09/15/2024 6:02 PM [facility] Hemoglobin 12.7 11.5 - 16.0 g/dL LAB HEMETOLOGY METHOD 09/15/2024 6:02 PM [facility] Hematocrit 40.2 35.0 - 47.0 % LAB HEMETOLOGY METHOD 09/15/2024 6:02 PM [facility] MCV 85.7 79.0 - 98.0 FL LAB HEMETOLOGY METHOD 09/15/2024 6:02 PM [facility] MCH 27.1 27.0 - 32.0 pcg LAB HEMETOLOGY METHOD 09/15/2024 6:02 PM [facility] MCHC 31.6(L) 32.0 - 37.0 g/dL LAB HEMETOLOGY METHOD 09/15/2024 6:02 PM [facility] RDW 13.2 11.0 - 15.0 % LAB HEMETOLOGY METHOD 09/15/2024 6:02 PM [facility] Platelets 318 130 - 400 K/mcL LAB HEMETOLOGY METHOD 09/15/2024 6:02 PM [facility] MPV 10.1 7.0 - 11.0 FL LAB HEMETOLOGY METHOD 09/15/2024 6:02 PM [facility] NRBC 0.0 <1.0 % LAB HEMETOLOGY METHOD 09/15/2024 6:02 PM [facility] NRBC Absolute 0.00 <0.10 K/mcL LAB HEMETOLOGY METHOD 09/15/2024 6:02 PM [facility] Neutrophils Relative 61.4 % LAB HEMETOLOGY METHOD 09/15/2024 6:02 PM [facility] Lymphocytes Relative 31.0 % LAB HEMETOLOGY METHOD 09/15/2024 6:02 PM [facility] Monocytes Relative 4.9 % LAB HEMETOLOGY METHOD 09/15/2024 6:02 PM [facility] Eosinophils Relative 2.1 % LAB HEMETOLOGY METHOD 09/15/2024 6:02 PM [facility] Basophils Relative 0.3 % LAB HEMETOLOGY METHOD 09/15/2024 6:02 PM [facility] Immature Granulocytes Relative 0.3 % LAB HEMETOLOGY METHOD 09/15/2024 6:02 PM [facility] Neutrophils Absolute 5.29 1.50 - 7.00 K/mcL LAB HEMETOLOGY METHOD 09/15/2024 6:02 PM [facility] Lymphocytes Absolute 2.67 1.00 - 5.00 K/mcL LAB HEMETOLOGY METHOD 09/15/2024 6:02 PM [facility] Monocytes Absolute 0.42 0.20 - 1.00 K/mcL LAB HEMETOLOGY METHOD 09/15/2024 6:02 PM [facility] Eosinophils Absolute 0.18 0.00 - 0.50 K/mcL LAB HEMETOLOGY METHOD 09/15/2024 6:02 PM [facility] Basophils Absolute 0.03 0.00 - 0.20 K/mcL LAB HEMETOLOGY METHOD 09/15/2024 6:02 PM [facility] Immature Granulocytes Absolute 0.03 0.00 - 0.03 K/mcL LAB HEMETOLOGY METHOD 09/15/2024 6:02 PM [facility] Blood Venous blood specimen / Unknown Venipuncture / Unknown 09/15/2024 3:22 PM EST 09/15/2024 3:22 PM EST Wm Macdonald CNM LAB BLOOD ORDERABLES Final Res ult Performing Organization Address [facility] Co de Phone Number [facility] [address] [place] [address], * Prolactin (09/15/2024 3:22 PM EST) [facility] Prolactin 12.40 See Comment ng/mL LAB CHEMISTRY METHOD 09/15/2024 6:02 PM EST [facility] Comment: Prolactin Reference Ranges (ng/mL) ??Non ?2.2 - ??30.3 ? 8.1 - 347.6 ??Postmenopausal 0.7 - ??31.5 Blood Venous blood specimen / Unknown Venipuncture / Unknown 09/15/2024 3:22 PM EST 09/15/2024 3:22 PM EST Wm Macdonald [facility] BLOOD ORDERABLES Final Res ult Performing Organization Address [facility] Co de Phone Number [facility] [address] [place] [address], * Lipid panel (06/03/2021) [facility] LDL/HDL Ratio 3 0 - 4 Triglycerides 93 0 - 150 mg/dL Cholesterol 174 0 - 200 mg/dL HDL 67 >=40 mg/dL LDL Cholesterol 89 0 - 100 mg/dL Blood Venous blood specimen / Unknown Historical Provider LAB BLOOD ORDERABLES Cherry l Result from Last 3 Months or Most Recently Relevant to Health Maintenance Insurance [employer] Care Teams Chair Inspector And Leveler Relationship Specialty Start Date End Date Physician, Pcp Unknown PCP - General 09/15/24
--- OUTSIDE RECORDS SUMMARY | 2024-09-22 07:38 | XMS_ITS | Encounter Summary ---
Author Organization [facility] Address [address] [place] [address] Care Team Providers Care Genetic Coordinator Name Role Phone Physician, Pcp Unknown Primary Care Provider Susi vailable Reason for Referral * Imaging (Routine) - Pending Review Specialty Diagnoses / Procedures Referred By Nena t Referred To Contact Radiology Diagnoses Abnormal uterine bleeding (AUB) Procedures US Pelvis Non OB Complete w Transvaginal Wm Macdonald CNM [address] [place] [address] Phone: tel: fax: [address] [phone] Phone: tel: Referral ID Status Reason Start Date Expiration Date V isits Requested Visits Authorized [id number] Pending Review 09/15/2024 09/15/2025 1 1 Reason for Visit * Reason Comments Gynecologic Exam Encounter Details Date Type Department Care Team (Latest Contact Info) Description 09/15/2024 4:00 PM EST Office Visit Obstetrics and Gynecology - [facility] [address] [place] [phone] Wm Macdonald CNM [address] [place] [phone] Encounter for annual routine gynecological examination (Primary Dx); Abnormal uterine bleeding (AUB); Surveillance for control, oral contraceptives Social History Tobacco Use Types Packs/Day Years [...] on file documented as of this encounter Last Filed Vital Signs Vital Sign Reading [...] Mass Index 51.49 09/15/2024 2:35 PM EST documented in this encounter Progress Notes * Wm Macdonald CNM - 09/15/2024 4:00 PM EST Office note: Routine Credit Rating Checker Exam Encounter Date: 09/15/2024 HPI: Ada Oleary is a 34 y.o. who presents for routine annual exam. Patient's last menstrual period was 09/09/2024. She is single and abstinent. Feels safe and happy at home. 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 Her concern today is that she is onOCP's and only since the start of June she has been having heavy bleeding with clots not only on her menstrual cycle but the week before so bleeding twice in a month if not more. Bleeding [id number]/05/2024 through 07/13/24 then again on 07/15/24 to 07/18/24 then again 08/12/24 through 08/15/24 then again on the 08/23/24; 08/28/24; 08/31/24 to the 09/03/24 and now spotting a little today. The bleeding allthose dates were large clots, but not soaking through pads in less than an hour. Review of Systems - Review of Systems Constitutional: Negative. HENT: Negative. Respiratory: Negative. Cardiovascular: Negative. Gastrointestinal: Negative. Genitourinary: Positive for menstrual problem and vaginal bleeding. Musculoskeletal: Negative. Skin: Negative. Neurological: Negative. Psychiatric/Behavioral: Negative. Health Maintenance and Preventative Care: Health Maintenance: Last mammogram: N/A due age 40 or PRN Immunization History Administered Date(s) Administered COVID-19 (Moderna/Spikevax) 12yo and older 04/26/2023, 04/21/2024 HPV, Quadrivalent 09/26/2004, 08/05/2007, 02/08/2008 Hepatitis B Pediatric (Engerix B; Recombivax HB) to less than 20 yo 10/18/2001 Influenza trivalent, with preservative (Fluzone; Afluria) 6mo and older 04/24/2016 Influenza, Unspecified 05/12/2021 Meningococcal MCV4P 10/12/2007 Moderna (age 6mo & older) Bivalent, COVID-19, 0.5 mL or 0.25 mL dosage 05/16/2022 Moderna SARS-CoV-2 COVID-19, mRNA, LNP-S, preservative free 09/13/2020, 10/11/2020, 06/14/2021 Tdap Tetanus diptheria acellular pertussis (Boostrix; Adacel) 7yo and older 10/22/2007, 01/09/2021 Varicella live (Varivax) 12mo and older 02/18/2000, 10/22/2007 OB History Para Term AB Living 0 0 0 0 0 0 SAB IAB Ectopic Multiple Live Births 0 0 0 0 0 Credit Rating Checker History: Last Pap: 2019 negative cytology; pap collected today 09/15/2024 H/o abnormal Pap: No Completed Gardasil series: YES Patient Active Problem List Diagnosis Raynaud's disease without gangrene Dry skin Fatigue Weight gain Past Medical History: Diagnosis Date Obesity DX:Obesity Past Surgical History: Procedure Laterality Date OTHER SURGICAL HISTORY PROCEDURE: DENIES PREVIOUS SURGERY Family History Problem Relation Name Age of Onset Alzheimer's disease Paternal Grandmother Breast cancer Maternal Grandmother Genevieve Hypertension Father Franck Asthma Brother Colon cancer Maternal Grandfather Ovarian cancer Neg Hx Uterine cancer Neg Hx Pancreatic cancer Neg Hx Prostate cancer Neg Hx Social History Socioeconomic History Marital status: Single Spouse name: None Number of children: None Years of education: None Highest education level: None Occupational History None Tobacco Use Smoking status: Never Smokeless tobacco: Never Substance and Sexual Activity Alcohol use: Not Currently Drug use: No Sexual activity: Never control/protection: Pill, Abstinence Other Topics Concern None Social History Narrative 06/19/2020: She lives by herself. Feels safe at home. She is not in a relationship with anyone, doesprefer the male sex. She denies routine exercise, tries to walk with friends. She works for [employer] in the [place] Department 08/09/2021 : She lives by herself, feels safe. No relationship at this time. Just bought a rower and is tryingto work out more. She continues to work for [employer]. 08/11/2022: She lives by herself, feels safe. No relationship at this time. 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 Trying to exercise 5 days a week. 08/20/2023: She lives by herself, feels safe and happy. She is single. She is working from home at a new job for [employer]. She is exercising a few days a week. 09/15/2024: no changes Allergies Allergen Reactions Mold Runny nose Current Outpatient Medications on File Prior to Visit Medication Sig Dispense Refill cetirizine HCl (ZYRTEC ORAL) Take by mouth. norgestimate-ethinyl estradioL (ORTHO-CYCLEN) 0.25-35 mg-mcg per tablet Take 1 tablet by mouth 1 (one) time each day. 28 tablet 4 triamcinolone acetonide (NASACORT AQ NASL) by Nasal route. [DISCONTINUED] ergocalciferol (VITAMIN D-2) 1,250 mcg (50,000 unit) capsule TAKE 1 CAPSULE BY MOUTH1 TIME A WEEK FOR 8 DOSES [DISCONTINUED] UNABLE TO FIND ALLERGY INJECTIONS Once monthly [DISCONTINUED] upadacitinib (Rinvoq) 15 mg tablet extended release 24 hr Take by mouth. No current facility-administered medications on file prior to visit. Physical exam: Blood pressure 128/78, pulse 92, resp. rate 16, height 1.59 m (62.6 ), weight 130 kg (287 lb), lastmenstrual period 09/09/2024. Body mass index is 51.49 kg/m??. This patient was offered a auditor tax for today's exam and she declines Physical Exam Constitutional: General: She is not in acute distress. Appearance: Normal appearance. Genitourinary: Vulva and rectum normal. Right Labia: No rash or lesions. Left Labia: No lesions or rash. No vaginal discharge, erythema or bleeding. No cervical motion tenderness, discharge, lesion or polyp. Uterus exam comments: Bimanual deferred due to body habitus, she is going for pelvic ultrasound to assess AUB. Breasts: Breasts are symmetrical. Breasts are soft. Right: Normal. Left: Normal. Cardiovascular: Rate and Rhythm: Normal rate and regular rhythm. Heart sounds: Normal heart sounds. Pulmonary: Effort: Pulmonary effort is normal. Breath sounds: Normal breath sounds. Abdominal: Palpations: Abdomen is soft. Musculoskeletal: General: Normal range of motion. Neurological: General: No focal deficit present. Mental Status: She is alert and oriented to person, place, and time. Skin: General: Skin is warm and dry. Psychiatric: Mood and Affect: Mood normal. Behavior: Behavior normal. Vitals reviewed. Assessment/Plan: 34 y.o. 1. Screening for sexually transmitted infections -Gonorrhea/Chlamydia testing offered, declines has never been sexually active 2. Contraception -continue with OCP's we did discuss changing to IUD if AUB continues; We discussedthe insertion and removal of the IUD as well as the side effects and potential complications were discussed with her, including irregular bleeding, cramping, vaginal discharge, possibility of discomfort for partner during intercourse from strings, heavier or public service director menses, expulsion of IUD, uterine perforation with loss of IUD and potential for surgical removal, ectopic or tubal , infection with potential loss of future fertility. 3. Health Maintenance and Screening -Reviewed ASCCP guidelines. Pap smear collected today, yearly pelvic exam. -Reviewed and encouraged diet and exercise for cardiovascular and bone health -Reviewed breast self awareness. Plan for yearly mammogram at age 40. -Discussed use of 3 times per week weight bearing exercise, Vitamin D3 and 4 servings of dietary calcium daily for bone health. -Continue to follow with PCP for general medical care, immunizations -Family and personal history of cancer reviewed. Cat screening not indicated. AUB: plan to check TSH, CBC, Prolactin and pelvic U/S to assess for causes of AUB patient aware of plan may return to try Mirena IUD 1. Encounter for annual routine gynecological examination Pap smear 2. Abnormal uterine bleeding (AUB) CBC and differential Thyroid stimulating hormone with reflex to free t4 and free t3 Prolactin US Pelvis Non OB Complete w Transvaginal 3. Surveillance for control, oral contraceptives Follow up in about 1 year (around 09/15/2025) for Annual Exam. Wm Macdonald CNM documented in this encounter Plan of Treatment Not on file documented as of this encounter Procedures Procedure Name Priority Date/Time Associated Diagnosis Comments HPV WITH REFLEX GENOTYPE Routine 09/15/2024 3:23 PM EST Encounter for annual routine gynecological examination PAP SMEAR Routine 09/15/2024 3:23 PM EST Encounter for annual routine gynecological examination documented in this encounter Results * US [...] Signed Date: 09/20/2024 09:38 ET Workstation ID: [id number] Transcribed By: Self Edit Transcribed Date: 09/20/2024 [...] Signed Date: 09/20/2024 09:38 ET Workstation ID: [id number] Transcribed By: Self Edit Transcribed Date: 09/20/2024 09:36 ET Wm Macdonald CNM IMG US PROCEDURES Final Result * HPV with reflex genotype (09/15/2024 3:23 PM EST) Pathologist [facility] HPV Negative Negative LAB MICROBIOLOGY METHOD 09/16/2024 3:01 PM EST [facility] Brushing/Spatula Cervix uteri structure / Unknown 09/15/2024 3:23 PM EST 09/16/2024 8:24 AM EST Wm Macdonald CNM LAB MOLECULAR DIAGNOSTICS ORDE RABLES Final Result [facility] [address] [place] [address], [place] [phone] * Pap smear (09/15/2024 3:23 PM EST) Interpretation Negative for intraepithelial lesion or malignancy 09/19/2024 2:17 PM EDT [facility] General Categorization Negative 09/19/2024 2:17 PM EDT [facility] Specimen Adequacy Satisfactory for evaluation, endocervical/bautista sformation zone component present 09/19/2024 2:17 PM EDT [facility] Pap Methodology Liquid Based Pap Test 09/19/2024 2:17 PM EDT [facility] Disclaimer The Pap test is a screening test which carries an inherent false negative rate. These test results should be correlated with the patient's clinical findings and history. This Pap test was processed using an automated screening system. Technical cytopathology services provided by [facility], at [address] [place] [id number] (CLIA # [id number]/Anand Meneses MD, Grants Assistant.) 09/19/2024 2:17 PM EDT [facility] Console Pap Interpretation Reported 09/19/2024 2:17 PM [facility] Brushing/Spatula Cervix uteri structure / Unknown 09/15/2024 3:23 PM EST 09/15/2024 3:24 PM EST Wm Macdonald CNM LAB CYTOLOGY ORDERABLES Final Result [facility] [address] [place] [address], * Prolactin (09/15/2024 3:22 PM EST) Prolactin 12.40 See Comment ng/mL LAB CHEMISTRY METHOD 09/15/2024 6:02 PM EST [facility] Comment: Prolactin Reference Ranges (ng/mL) ??Non ?2.2 - ??30.3 ? 8.1 - 347.6 ??Postmenopausal 0.7 - ??31.5 Blood Venous blood specimen / Unknown Venipuncture / Unknown 09/15/2024 3:22 PM EST 09/15/2024 3:22 PM EST Wm Macdonald [facility] BLOOD ORDERABLES Final Res ult Performing Organization Address [facility]/ZIP Co de Phone Number [facility] [address] [place] [address], [place] [phone] * Thyroid stimulating hormone with reflex to free t4 and free t3 (09/15/2024 3:22 PM EST) Pathologist [facility] TSH 3.19 0.40 - 4.00 mcIU/mL LAB CHEMISTRY METHOD 09/15/2024 6:10 PM EST [facility] Blood Venous blood specimen / Unknown Venipuncture / Unknown 09/15/2024 3:22 PM EST 09/15/2024 3:22 PM EST Wm Macdonald [facility] BLOOD ORDERABLES Final Res ult Performing Organization Address [facility] de Phone Number [facility] [address] [place] [address], [place] [phone] documented in this encounter Visit Diagnoses Diagnosis Encounter for annual routine gynecological examination- Primary Abnormal uterine bleeding (AUB) Surveillance for control, oral contraceptives Surveillance of previously prescribed contraceptive pill Abnormal uterine bleeding (AUB) documented in this encounter Discontinued Medications Medication Sig Discontinue Reason Start Date End Da te upadacitinib (Rinvoq) 15 mg tablet extended release 24 hr Take by mouth. 09/15/2024 ergocalciferol (VITAMIN D-2) 1,250 mcg (50,000 unit) capsule TAKE 1 CAPSULE BY MOUTH 1 TIME A WEEK FOR 8 DOSES 09/25/2022 09/15/2024 UNABLE TO FIND ALLERGY INJECTIONS Once monthly 09/15/2024 documented as of this encounter Additional Health Concerns Assessment Noted Time PHQ-9 Depression Total Score: 0 09/08/19 25 12:18 PM EST documented as of this encounter Care Teams Genetic Coordinator Relationship Specialty Start Date End Date Physician, Pcp Unknown PCP - General 09/15/24 documented as of this encounter
[2024-09-22 11:27] LABS: MANUAL DIFF FLAG NO
[2024-09-22 11:45] LABS: Basophils Percent Auto 0.3 % (0-2); Eosinophils Absolute Auto 0.2 X10*3/uL (0.0-0.4); Eosinophils Percent Auto 2.4 % (0-4); Hematocrit 38.3 % (37.0-47.0); Hemoglobin 12.1 g/dl (12.0-16.0); Imm Gran Abs Auto 0.02 X10*3/uL (0.00-0.03); Imm Gran Pct Auto 0.3 % (0.0-0.4); Lymphocytes Percent Auto 25.8 % (20-40); Mean Corpuscular HGB Conc 31.6 g/dl (31.0-35.0); Mean Corpuscular Hemoglobin 26.7 pg (27.0-33.0); Mean Corpuscular Volume 84.5 fL (80.0-98.0); Mean Platelet Volume 10.2 fL (9.4-12.3); Monocytes Absolute Auto 0.3 X10*3/uL (0.1-1.2); Monocytes Percent Auto 4.2 % (2-11); Neutrophils Absolute Auto 5.1 x10*3/uL (2.0-8.3); Platelet Count 256 X10*3/uL (160-400); Red Blood Count 4.53 X10*6/uL (4.20-5.50); Red Cell Distribution Width 13.4 % (11.0-16.0); White Blood Count 7.6 X10*3/uL (4.8-10.8)
[2024-09-22 12:12] LABS: Alanine Aminotransferase 12 U/L (0-31); Albumin Level 3.5 g/dL (3.5-5.0); Alkaline Phosphatase 64 U/L (39-117); Anion Gap 11 (12-20); Aspartate Amino Transferase 19 U/L (5-31); Bilirubin Direct < 0.2 mg/dL (0.0-0.5); Bilirubin Total 0.2 mg/dL (0.0-1.0); Blood Urea Nitrogen 8 mg/dL (9-16); Calcium 8.4 mg/dL (8.4-10.2); Carbon Dioxide 25 mmol/L (22-29); Chloride 107 mmol/L (96-108); Cholesterol 160 mg/dL (<200); Estimated Glomerular Filt Rate > 60; Glucose Random 76 mg/dL (60-115); HDL Cholesterol 58 mg/dL (>40); LDL Cholesterol Calculated 75 mg/dL (<100); Potassium 3.9 mmol/L (3.3-5.1); Sodium 139 mmol/L (135-145); Total Protein 7.3 g/dL (6.5-8.0); Triglycerides 136 mg/dL (<150)
== END 2024-09-22 07:34 | disposition home or self-care (01) ==
LOC: HO.WFDLDS 07:33
PROVIDERS: Visit Provider Physician Assistant
DX: L20.89 Other atopic dermatitis (principal); L40.8 Other psoriasis; Z79.899 Other long term (current) drug therapy
CPT/HCPCS: 36415; 80048; 80061; 80076; 85025; 86481

== ENCOUNTER 2025-05-24 15:21 | Outpatient (AMB) | payer BC, SELFPAY ==
--- NOTE | 2025-05-24 15:40 | A.OFFPC_ITS ---
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: No Allergies guselkumab (From Tremfya) Allergy (Intermediate, Verified 05/24/25 16:00) Rash dupilumab (From Dupixent Pen) Allergy (Mild, Verified 05/24/25 15:41) Hives Medication List - Last Reconciled 05/24/25 by Lilibeth Cabrera PA-C cetirizine (Zyrtec) 10 mg PO DAILY PRN cholecalciferol (vitamin D3) 50 mcg PO DAILY clindamycin phosphate 1% 1 appl topical DAILY escitalopram oxalate (Lexapro) 5 mg PO DAILY upadacitinib ER (Rinvoq) 15 mg PO DAILY Tobacco use date assessed: 05/24/25 Dental Screening Dental Screen Date: 05/24/25 Did you have a dental visit in the last 12 months?: Yes Did you have a dental problem in the last 6 months where you did not have access to dental care?: No Was dental information given to patient?: Patient has dentist HPI cpe HPI Details Pt is a 35 y/o female who presents today for a cpe. She has a hx of psoraisis being managed by [facility] and allergies. Allergy and immunology gets allergy injections. Recently started on rinvoq for psoriasis. She seems to be getting acne from it and some facial flushing at times. On vitamin D daily. Psych: has been having more anxiety recently. States that there has been nothing that has really triggered this but she has noticed daily, generalized a nxiety. No SI/HI. She has never been on medication before but is interested in trying something. 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 Current occupational exposures/hazards: No Cognitive needs: No Hearing needs: No Vision needs: Yes (contacts and glasses ) Questionnaire Thrive Questionnaire Date Thrive assessed: 07/14/24 I am a: Patient What is your living situation today?: I have a steady place to live Within the past 12 months, did the food you bought not last and you didn't have the money to get more?: Never true Within the past 12 months, did you worry whether your food would run out before you got money to buy more?: Never true Do you have trouble paying for medicines?: No Do you have trouble getting transportation to medical appointments?: No Do you have trouble paying your heating and electricity bill?: No Do you have trouble taking care of your child, family member or friend?: No Do you have trouble with day-to-day activities such as bathing, preparing meals, shopping, managing finances, etc.?: No Are you currently unemployed and looking for a job?: No Are you interested in more education?: No Please select the resources that you would like help with: None Currently or been in a relationship where the following occur: No concerns reported THRIVE Score: 0 AUDIT C Alcohol Use Questionnaire (AUDIT-C) 1. How often do you have a drink containing alcohol?: Never 3. How often do you have six or more drinks on one occasion?: Never Total Score: 0 Physical exam (Primary Care) Vital Signs: Last Vital Signs Temp 98.8 F 05/24/25 15:41 Pulse 87 05/24/25 15:41 Resp 16 05/24/25 15:41 BP 108/86 05/24/25 15:41 Pulse Ox 97 05/24/25 15:41 Oxygen Delivery Method Room Air 05/24/25 15:41 BMI result Body Mass Index 47.8 Tobacco/Smoking Status: Tobacco use Status Tobacco use date assessed 05/24/25 05/24/25 15:52 Patient Tobacco Use Status Never used Tobacco 05/24/25 15:59 e-Cigarette/Vaping Use Never Used 05/24/25 15:59 Thrive Assessment: Date of Thrive Assessment Date Thrive assessed 07/14/24 05/24/25 15:52 Currently or been in a relationship where the following occur: No concerns reported Const Orientation/consciousness: patient oriented x3 HENMT Ears: hearing grossly normal bilaterally and TM's normal bilaterally General nose exam: No nasal polyps present Face and sinus: Yes sinuses nontender Mouth: Normal oral and palatal mucosa present Eyes Pupils: Equal, round and reactive pupils present EOM: EOMs intact bilaterally Neck Neck: Yes full ROM and Yes no lymphadenopathy Thyroid: Thyroid normal Chest Chest palpation & inspection: normal inspection of the chest Resp Auscultation: clear to auscultation bilaterally Cardio Rate: regular rate Rhythm: regular rhythm Heart sounds: S1 normal heart sound present and S2 normal heart sound present Peripheral pulses: Peripheral pulses 2+ throughout GI Other: Soft, nontender Auscultation: normal bowel sounds Rectal Exam - Female: deferred General: Yes no CVA tenderness Back/Spine/Pelvis Other: Nontender Back: no CVA tenderness Skin General skin exam: no rashes or lesions noted Neuro General: patient oriented x3, gait normal, CN's II-XI intact bilaterally and deep tendon reflexes 2+ bilaterally Cranial nerves: Yes Equal, round and reactive pupils present Motor exam (neuro): 5/5 motor strength present throughout Sensory Exam: double simultaneous stimulation for sensation normal Coordination: [id number] test normal and Romberg test negative Extrem General: Yes normal to inspection and Yes full ROM Psych Affect: normal affect Attitude: cooperative Thought process: Normal thought process present Thought content: Normal thought content present Insight: Good insight present (Psych) Judgement: Good judgement present (Psych) Coding Level of Care Code Est Pt Prev Care [id number]([id number]) Diagnoses Encounter for routine history and physical examination Z00.00 Psoriasis L40.9 Generalized anxiety disorder F41.1 Assessment & Plan Assessment & Plan (1) Encounter for routine history and physical examination: Code(s): Z00.00 - Encounter for general adult medical examination without abnormal findings Plan: Health maintenance reviewed. Labs ordered today. We will follow up pending test results (2) Psoriasis: Code(s): L40.9 - Psoriasis, unspecified Category: Medical Plan: Following with dermatology (3) Generalized anxiety disorder: Code(s): F41.1 - Generalized anxiety disorder Category: Medical Plan: We will try Lexapro. We discussed risks and benefits and adverse effects of this medication. Short term follow up in 4-6 weeks. Sooner if needed. Patient understands and agrees with this plan. Orders: Orders TSH reflex Free T4 05/24/25 L40.9 - Psoriasis, unspecified Lipid Panel 05/24/25 F41.1 - Generalized anxiety disorder, L40.9 - Psoriasis, unspecified, Z00.00 - Encounter for general adult medical examination without abnormal findings, Z01.89 - Encounter for other specified special examinations Complete Blood Count Auto Diff 05/24/25 L40.9 - Psoriasis, unspecified Comprehensive Tonica. Panel Fast 05/24/25 L40.9 - Psoriasis, unspecified Medications: New escitalopram oxalate (Lexapro) 5 mg PO DAILY 30 tabs 3RF
[2025-05-24 15:41] VITALS: BP 108/86; PULSE 87; RESP 16; TEMP 37.1; O2SAT 97; BMI 47.8
--- OUTSIDE RECORDS SUMMARY | 2025-05-24 18:35 | XMS_ITS | Clinical Summary ---
Author Organization [facility] [address] Address [address] [place] [address] Phone Care Team Providers Care English Teacher Name Role Phone Lilibeth Cabrera Primary Care Provider [phone] Allergies Active Allergy Reactions Criticality Noted Date Comments Mold Runny nose 06/03/2021 Medications cetirizine HCl (ZYRTEC ORAL) Take by mouth. A ctive triamcinolone acetonide (NASACORT AQ NASL) by Nasal route. Acti ve levonorgestreL (MIRENA) 21 mcg/24hr (up to 8 yrs) 52 mg IUD 1 Device (1 each total) by intrauterine route 1 (one) time. 5 10/15/19 33 Active Active Problems Problem Noted Date Diagnosed Date Severe obesity (CMS/HCC V24, CMS/HCC V28) 2024 Seasonal allergies 10/07/2024 Mild obstructive sleep apnea 10/07/2024 Vitamin D deficiency 10/07/2024 Fibroids 09/21/2024 Overview (09/21/2024): There is small submucosal fibroid on the anterior wall measuring 1.1 x 1.1 x 1 cm. Raynaud's disease without gangrene 08/05/2022 Dry skin 08/05/2022 Fatigue 08/05/2022 Weight gain 08/05/2022 Immunizations Immunization Administration Dates Next Due HPV, Quadrivalent 02/08/2008,08/05/2007,09/27/19 [...] Relation Name Comments Asthma Brother Hypertension Father Franck Colon cancer Maternal Grandfather Breast cancer Maternal [...] for your loved ones. For example, child welfare consultant or elderly care for an older adult? [...] Date Recorded What is your living situation? Unrecognized valu e 09/08/2024 Comments Unknown Sex and Gender Information [...] Sign Reading Time Taken Comments Blood Pressure 133/81 10/14/2024 3:04 PM EDT Pulse 64 10/14/2024 3:04 PM EDT Temperature - - Respiratory Rate 16 09/15/2024 2:35 PM EST Oxygen Saturation - - Inhaled Oxygen Concentration - - Weight 129 kg (284 lb) 10/14/2024 3:04 PM EDT Height 159 cm (5' 2.6 ) 09/15/2024 2:35 PM EST Body Mass Index 50.96 09/15/2024 2:35 PM EST Plan of Treatment Health Maintenance Due Date Last Done Comments Hepatitis B Vaccines (2 of 3 - 3-dose series) 11/15/2001 10/18/2001 HIV Screening 06/15/2022 Hepatitis C Screening 06/15/2022 COVID-19 Vaccine ( season) 2025 04/21/2024, 04/26/2023, 05/16/2022, Additional history exists Influenza Vaccine (#1) 2025 , 04/26/2023, 04/27/2022, Additional history exists Social Influencers of Health Screening 09/08/2025 09/08/2024 Cholesterol Screening (Lipid Panel) 06/03/2026 06/03/2021 Cervical Cancer Screening: HPV 09/16/2027 09/15/2024, 06/19/2020 Cervical Cancer Screening: Pap Smear 09/16/2027 09/15/2024, 09/15/2024, 06/19/2020, Additional history exists DTaP,Tdap,and Td Vaccines (3 - Td or Tdap) 01/09/2031 01/09/2021, 10/22/2007 RSV Immunization Adult Patients (1 - 1-dose 75+ series) 2065 Meningococcal ACWY Vaccine Completed 10/12/2007 Varicella Vaccines Completed 10/22/2007, 02/18/2000 HPV Vaccines Completed 02/08/2008, 09/10, 08/05/2007, Additional history exists Depression Screening Completed 10/10/2024 HIB Vaccines Aged Out No longer eligi [...] age to complete this topic Meningococcal B Vaccine Aged Out No l onger eligible based on patient's age to complete this topic Pneumococcal Vaccine: Pediatrics (0 to 5 Years) and At-Risk Patients (6 to 49 Years) Aged Out No longer eligible based on patient's age to complete this topic RSV Immunization Patients Under 20 months Aged Out No longer eligible based on patient's age to complete this topic Procedures Procedure Name Priority Date/Time Associated Diagnosis Comments HPV WITH REFLEX GENOTYPE Routine 09/15/2024 3:23 PM EST Encounter for annual routine gynecological examination LIPID PANEL Routine 06/03/2021 from Last 3 Months or Most Recently Relevant to Health Maintenance Results * HPV with reflex genotype (09/15/2024 3:23 PM EST) Pathologist [facility] HPV Negative Negative LAB MICROBIOLOGY METHOD 09/16/2024 3:01 PM EST [facility] Brushing/Spatula Cervix uteri structure / Unknown 09/15/2024 3:23 PM EST 09/16/2024 8:24 AM EST Wm Macdonald CNM LAB MOLECULAR DIAGNOSTICS [facility] Final Result [facility] [address] [place] [address], * Lipid panel (06/03/2021) Pathologist [facility] LDL/HDL Ratio 3 0 - 4 Triglycerides 93 0 - 150 mg/dL Cholesterol 174 0 - 200 mg/dL HDL 67 >=40 mg/dL LDL Cholesterol 89 0 - 100 mg/dL Blood Venous blood specimen / Unknown Historical Provider LAB BLOOD ORDERABLES Cherry l Result from Last 3 Months or Most Recently Relevant to Health Maintenance Insurance [facility] Care Teams English Teacher Relationship Specialty Start Date End Date Lilibeth Cabrera PA [address] [place] [id number] PCP - General Physician Motor Electrician 10/07/24
== END 2025-05-24 16:08 | disposition home or self-care (01) ==
LOC: HO.HMCFM 15:22
PROVIDERS: PCP Physician Assistant; Visit Provider Physician Assistant
DX: Z00.00 Encounter for general adult medical examination without abnormal findings (principal); L40.9 Psoriasis, unspecified; F41.1 Generalized anxiety disorder

== ENCOUNTER 2025-05-29 08:06 | Outpatient (REF) | payer BC, SELFPAY ==
[2025-05-29 11:21] LABS: MANUAL DIFF FLAG NO
[2025-05-29 12:09] LABS: Hematocrit 43.4 % (37.0-47.0); Hemoglobin 13.8 g/dl (12.0-16.0); Imm Gran Abs Auto 0.02 X10*3/uL (0.00-0.03); Imm Gran Pct Auto 0.3 % (0.0-0.4); Lymphocytes Absolute Auto 1.8 X10*3/uL (1.2-4.9); Mean Corpuscular HGB Conc 31.8 g/dl (31.0-35.0); Mean Corpuscular Hemoglobin 28.3 pg (27.0-33.0); Mean Corpuscular Volume 89.1 fL (80.0-98.0); NRBC Abs Auto 0.000 X10*3/uL (0.0-0.012); NRBC Pct Auto 0.0 /100WBC (0.0-0.2); Platelet Count 278 X10*3/uL (160-400); Red Blood Count 4.87 X10*6/uL (4.20-5.50); White Blood Count 7.6 X10*3/uL (4.8-10.8)
[2025-05-29 12:39] LABS: Alanine Aminotransferase 22 U/L (0-31); Albumin Level 4.5 g/dL (3.5-5.0); Alkaline Phosphatase 71 U/L (39-117); Anion Gap 12 (12-20); Aspartate Amino Transferase 27 U/L (5-31); Blood Urea Nitrogen 12 mg/dL (9-16); Calcium 9.1 mg/dL (8.4-10.2); Carbon Dioxide 26 mmol/L (22-29); Chloride 104 mmol/L (96-108); Cholesterol 198 mg/dL (<200); Estimated Glomerular Filt Rate > 60; HDL Cholesterol 59 mg/dL (>40); Potassium 4.2 mmol/L (3.3-5.1); Sodium 138 mmol/L (135-145); Total Protein 7.9 g/dL (6.5-8.0); Triglycerides 112 mg/dL (<150)
[2025-06-01 00:43] LABS: TS Negative Control Passed; TS Panel A 0; TS Panel B 0; TS Positive Control Passed; TSpotTB Negative (Negative)
== END 2025-05-29 08:07 | disposition home or self-care (01) ==
LOC: HO.WFDLDS 08:06
PROVIDERS: Referring Provider Physician Assistant; Visit Provider Physician Assistant
DX: Z00.00 Encounter for general adult medical examination without abnormal findings (principal); Z01.89 Encounter for other specified special examinations; Z11.1 Encounter for screening for respiratory tuberculosis; F41.1 Generalized anxiety disorder; L40.9 Psoriasis, unspecified; Z79.899 Other long term (current) drug therapy
CPT/HCPCS: 36415; 80053; 80061; 84443; 85025; 86481